=== PATIENT | female | born 1970 | race Caucasian/White ===

== ENCOUNTER 2023-03-22 01:33 | Day surgery (SDC) | payer BC, SELFPAY ==
[2023-03-10 10:04] VITALS: BMI 30.7
--- NOTE | 2023-03-10 10:09 | PC.NURSE ---
Report to the Outpatient Waiting Room, entrance under the green pavilion located off [facility], at time 0630 on date 03/22/23. Planned Procedure Time: 0830. Time changes happen often and if your time is changed the preop area will call you the afternoon before. - You and your visitor will be asked to self-screen and do not enter if you have any COVID symptoms. - A mask is optional within the hospital at this time. Patients may have clear liquids (water, carbonated beverages, clear teas, apple juice) until 3 hours prior to surgery with a maximum of 20 ounces. - No food from midnight until time of surgery Take the following medications with a SIP of water the morning of surgery: CITALOPRAM DO NOT STOP ANY OF YOUR OTHER PRESCRIPTION MEDICATIONS PRIOR TO SURGERY ?EXCEPT THE FOLLOWING Medications to discontinue per physician: VITAMINS/SUPPLEMENTS Date to take last dose: 03/18/23 Please no make-up, nail slovenian, hairspray, perfume, deodorant, or body powder the day of surgery. No jewelry (including any body piercings) or valuables the day of surgery, leave them at home. Please take a shower or bath the night before, or the morning of, surgery with an antibacterial soap. Wear comfortable, loose fitting clothing. - Jewelry must be removed prior to entering the operating room. Rings and piercings that are not removed may be cut off. - The hospital will not accept responsibility for valuables. - Please leave all valuables, including medications, at home the day of surgery. If you are going home after surgery, a licensed class a regional truck driver must drive you home. - NO public transportation without another adult if you receive anesthesia. - We recommend that an adult stay with you for 24 hours following discharge. - We also recommend that you do not drive, make important decision, drink alcoholic beverages, or take any drugs that were not prescribed by your health care provider for at least 24 hours after your discharge time. Follow any additional instructions given to you from your surgeon. If you or anyone in your household have experienced Covid symptoms in the past week, please notify your surgeon or the nurse liaison at the phone number below for possible testing. Telephone instructions given to PT - SURJIT AGUIRRE and asked if any additional questions and then verbalized understanding. Patient advised to call surgeon office or pre surgery nurse liaison [phone] if any additional questions.
--- NOTE | 2023-03-17 13:00 | PM.IMHP ---
H&P: HPI History of Present Illness Date/Time: 03/17/23 13:00 Chief Complaint: Right posterior ankle and heel pain and swelling Narrative: 52-year-old woman with right Achilles tendinitis and calcaneal exostosis. Pain with daily activity. Problems with shoe wear. Failed treatment with inserts, therapy, bracing, activity modification And medication. Presents for operative treatment. Review of Systems Constitutional: Constitutional: Denies fever(s) Eyes: Eyes: Denies blurry vision ENT: Reports Normal hearing present Cardiovascular: Cardiovascular: Denies chest pain and Denies dyspnea Respiratory: Respiratory: Denies dyspnea and Denies wheezing Gastrointestinal: Gastrointestinal: Denies abdominal pain Genitourinary: Genitourinary: Denies urinary urgency Musculoskeletal: Musculoskeletal: Reports as per HPI and Denies numbness Integumentary/Breasts: Skin/Breast: Denies changing lesions and Denies sores Neurologic: Reports Normal hearing present, Denies behavioral changes, Denies confusion, Denies numbness and Denies convulsions Psychiatric: Psychiatric: Denies behavioral changes, Denies confusion and Denies hallucinations Endocrine: Endocrine: Denies heat intolerance Hematologic/Lymphatic: Hematologic/Lymphatic: Denies easy bleeding Allergic/Immunologic: Allergic/Immunologic: Denies wheezing PMFSH Past Medical History Medical History (Updated 03/17/23 @ 13:02 by Cyril Kessler MD) Achilles tendinitis of right lower extremity Achilles tendon contracture, right Ankle pain, right Exostosis of right posterior calcaneus Metatarsalgia of both feet Tightness of gastrocnemius muscle Family History Family History Other Family history of malignant neoplasm Hypertension Social History Social History Smoking status: Never smoker Alcohol intake: current Alcohol use details: RARE Substance use: never Substance use type: does not use Living arrangements: with family Spiritual care concerns: No Meds Home Medications and Allergies Home Medications Medication Instructions Recorded Confirmed Type citalopram 20 mg tablet 20 mg PO DAILY 03/10/23 03/10/23 History thyroid 90 mg tablet 1 mg PO DAILY 03/10/23 03/10/23 History Allergies Allergy/AdvReac Type Severity Reaction Status Date / Time No Known Allergies Allergy Verified 11/15/23 10:02 Exam Const: General: No confusion Orientation/consciousness: No confusion HENMT: Head: normal to inspection, normocephalic and atraumatic Eyes: Conjunctivae: conjunctivae normal Sclera: sclerae normal Neck: Neck: supple and nontender Chest: Chest palpation & inspection: normal inspection of the chest Resp: Effort & Inspection: normal respiratory effort and no audible wheezes Cardio: Rate: regular rate Rhythm: regular rhythm : General: Yes deferred Skin: General skin exam: no rashes or lesions noted Neuro: General: No confusion Extrem: General: capillary refill normal Right upper extremity: normal to inspection Left upper extremity: normal to inspection Right lower extremity: normal to inspection, hip/thigh Details: normal to inspection, ankle Details: tenderness Location: of the achilles tendon, swelling Details: posteriorly (mild), abnormal ROM Details: with range as follows ( active ankle dorsiflexion -5 degrees, plantar flexion 40?, passive plantarflexion 45?, dorsiflexion to neutral), achilles tendon exam abnormal Details: tenderness to palpation of achilles tendon and other and foot Details: normal capillary refill, toes with normal ROM, vascular exam Details: dorsalis pedis pulse present and normal capillary refill and motor-sensory exam Details: two point discrimination normal Location: in all toes and light-touch normal Location: in all toes Left lower extremity: hip/thigh Details: normal to inspection
[2023-03-22] VITALS (13 sets, daily range): BP systolic 101–146; BP diastolic 61–100; PULSE 63–82; RESP 12–19; TEMP 36.2–36.8; O2SAT 94–100
--- NOTE | ~2023-03-22 | XR_ITS ---
EXAMINATION: XR surgery orthopedic DATE: 03/22/2023 08:40 INDICATION: Right Achilles tendon reconstruction. TECHNIQUE: 2 intraoperative fluoroscopic views of right foot and ankle were obtained. I was not prese nt. Fluoroscopy exposure time was 3 seconds. COMPARISON: None. FINDINGS: There are changes of resection of the posterior aspect of calcaneal tuberosity. IMPRESSION: 1. Changes of resection of the posterior aspect of calcaneal tuberosity. Reviewed, dictated and finalized at location A. [employer]LES CHANNEL OPENER
[2023-03-22] MEDS: ACETAMINOPHEN 500 MG TABLET 1000 MG PO (06:01)
--- NOTE | 2023-03-22 06:57 | WPDHPUPDATE1 ---
History and Physical Update Update Date/Time: 03/22/23 06:57 History and Physical has been reviewed, including an updated exam of the patient. There are NO changes in the patient's condition. Risks, benefits, and alternatives have been discussed and questions answered. Patient agrees to proceed with procedure.
--- NOTE | 2023-03-22 07:14 | WPDANESEPPF ---
Anes - Initial Pre Proc Eval Procedure: Operation Date: 03/22/23 08:30 Proposed Procedures p Right Achilles Reconstruction, Excision Calcaneal Exostosis - Cyril Kessler MD Date/Time: 03/22/23 07:14 Surgeon: Cyril Kessler MD Pre Op Diagnosis: Right Achilles tendonitis,achilles exostosis Patient Data Age: 53 Gender: F Height: 1.68 m Weight: 86.2 kg Allergies Allergy/AdvReac Type Severity Reaction Status Date / Time No Known Allergies Allergy Verified 03/10/23 10:02 Home Medications Medication Instructions Recorded Confirmed Type citalopram 20 mg tablet 20 mg PO DAILY 03/10/23 03/10/23 History thyroid 90 mg tablet 1 mg PO DAILY 03/10/23 03/10/23 History Patient hx anesthesia problems: post op nausea/vomiting Family hx anesthesia problems: none Results Review: All pre-operative results and documents have been reviewed as part of the pre-operative evaluation. [facility] Past Medical History Medical History (Updated 03/17/23 @ 13:02 by Cyril Kessler MD) Achilles tendinitis of right lower extremity Achilles tendon contracture, right Ankle pain, right Exostosis of right posterior calcaneus Metatarsalgia of both feet Tightness of gastrocnemius muscle Family History Family History Other Family history of malignant neoplasm Hypertension Social History Social History Smoking status: Never smoker Alcohol intake: current Alcohol use details: RARE Substance use: never Substance use type: does not use Living arrangements: with family Spiritual care concerns: No Anes - Eval Final PreProcedure Day of Procedure 03/22/23 07:14 Patient weight: obese Heart: regular rate and rhythm Lungs: clear to auscultation Airway: Mallampati scale class II Neurological: alert and oriented Last oral intake: >/= 8 hours ASA classification: II Emergent: no Anesthetic plan: proceed Anesthesia type and monitoring: general LMA and standard monitoring Results Review: All pre-operative results and documents have been reviewed as part of the pre-operative evaluation. Informed Consent: The patient's anesthetic plan and its attendant risks and benefits were discussed with the patient/family/POA. Questions were solicited and answers provided to the satisfaction of the patient/family/POA.
[2023-03-22] MEDS: LACTATED RINGERS 1,000 ML 30 ML IV CONT ×2 (07:25→09:54)
[2023-03-22] MEDS: KETOROLAC 15 MG/ML VIAL (*BKC) IV PUSH (07:25)
[2023-03-22] MEDS: ceFAZolin 2 GM/D5W 50 ML 2 GM/50 ML BAG IVPB (07:39)
[2023-03-22] MEDS: BUPivacaine HCL 0.5% 10 ML AMP 20 ML INFILTRATE (08:16)
[2023-03-22] MEDS: fentaNYL CITRATE INJ (*CRX) 100 MCG/2 ML VIAL 25 MCG IV PUSH ×3 (10:03→10:15)
--- NOTE | 2023-03-22 10:13 | W.PM.PROC2 ---
Procedure Note - Detailed Date of Procedure 03/22/23 Pre-op Diagnosis Right Achilles tendonitis, calcaneal exostosis Post-op Diagnosis Same Procedure Performed Right Achilles tendon reconstruction with excision of calcaneal exostosis Surgeon Cyril Kessler MD Adapted Physical Education Teacher 1st medical record assistant Anesthesia General Indications 53-year-old woman with severe posterior right heel pain, and large calcaneal exostosis and Achilles tendinitis. Failed conservative treatment with therapy, inserts, medication including steroid treatment. Presents now for operative treatment. Description of Procedure Patient identified in the preoperative holding. Informed consent given. Operative extremity marked. Patient received intravenous antibiotics. Patient brought to the operating room where underwent general anesthetic by anesthesia team. Positioned prone on operating room table. Care taken to carefully secure and protect the head neck, and pad the bony prominences, and position the shoulders and arms. Time-out performed confirming the patient, site of the surgery and the plan. Right lower extremity prepped draped usual sterile surgical fashion using ChloraPrep skin solution. Foot and ankle exsanguinated and thigh tourniquet inflated to 250 mmHg. Direct posterior midline incision made with 15 blade knife over the distal Achilles tendon and posterior calcaneus. Hemostasis achieved with electrocautery. Full-thickness skin flaps developed medially and laterally including the paratenon over the Achilles tendon. Distal Achilles tendon noted to be degenerative with calcifications present. Fifteen blade knife used to release the Achilles tendon off the distal calcaneus with a midline split. Calcifications and degenerative portions sharply excised. Sufficient amount of normal Achilles tendon remaining for reconstruction. Osteotome used to resect the posterior calcaneal exostosis and osteophytes. Edges smoothed with a rongeur. Image intensification brought in and confirmed resection of the posterior exostosis. Wound thoroughly irrigated antibiotic solution. Retrocalcaneal bursa also sharply excised and bleeding points coagulated. Attention then turned to the Achilles tendon. Reconstruction achieved with the Arthrex Speed Bridge. 2.7 mm drill holes placed in posterior calcaneus and fibertak anchors placed with fiber tape. Fiber tape then delivered through the medial and lateral end of the Achilles tendon. Repair completed by passing the FiberTape ends through 4.75 mm SwiveLock anchors placed distal to the Achilles tendon insertion. Good repair noted. Midline split repaired with 0 Vicryl interrupted suture. Wound thoroughly irrigated antibiotic solution. Paratenon then repaired with 3 0 Monocryl running suture. Deep soft tissue repaired with 2 Vicryl interrupted suture. Skin approximated with 3 0 Monocryl the subcuticular running suture and skin glue. Sterile dressing applied. Bulky dressing and splint applied after releasing the tourniquet. The patient was then woken from anesthesia, extubated and taken to the recovery room in stable condition. All sponge, needle, instrument counts were correct at the end of the case. Implants Arthrex fiber tack speed bridge repair Estimated Blood Loss 5 Tourniquet Time 90 Drains No Packing No Pathology None sent Complications None Condition Stable Disposition PACU [facility] Billing Surgery - Charge Forward: Surgery Billing ([id number], [id number])
[2023-03-22] MEDS: oxyCODONE HCL (*CRX) 5 MG TAB IR PO (11:43)
[2023-03-22] MEDS: PROPARACAINE HCL 0.5% 15 ML OPHTH SOLN 1 DROP EACH EYE (12:03)
[2023-03-22] MEDS: DICLOFENAC SODIUM 0.1% OPHTH SOLN 2.5 ML BOTTLE 1 DROP EACH EYE (12:05)
[2023-03-22] MEDS: ARTIFICIAL TEARS OPHTH SOLN 15 ML BOTTLE 1 DROP EACH EYE (12:38)
== END 2023-03-22 13:34 | disposition home or self-care (01) ==
PROVIDERS: Visit Provider Orthopaedic Surgery
PROC: (CPT 27650; principal; 2023-03-22 08:30)
DX: M76.61 Achilles tendinitis, right leg (principal); M62.89 Other specified disorders of muscle; E66.9 Obesity, unspecified; Z68.29 Body mass index [BMI] 29.0-29.9, adult; Z80.9 Family history of malignant neoplasm, unspecified
CPT/HCPCS: 27650; 28120; 99199; A9270; C1713; J0690; J1100; J1885; J2250; J2405; J2704; J3010; J7120

== ENCOUNTER 2023-04-05 03:11 | Day surgery (SDC) | payer BC, SELFPAY ==
--- NOTE | 2023-04-02 12:21 | PC.NURSE ---
Report to the Outpatient Waiting Room, entrance under the green pavilion located off [facility], at time __0700 on date __04/05/23 . Planned Procedure Time: ___0900 . Time changes happen often and if your time is changed the preop area will call you the afternoon before. - You and your visitor will be asked to self-screen and do not enter if you have any COVID symptoms. - A mask is optional within the hospital at this time. Patients may have clear liquids (water, carbonated beverages, clear teas, apple juice) until 3 hours prior to surgery (6 AM)with a maximum of 20 ounces. - No food from midnight until time of surgery - Infants may have breast milk until 4 hours before surgery, infant formula 6 hours prior to surgery. - Children will be allowed to drink immediately following surgery. If applicable, please bring a bottle or sippy cup to assist with drinking. Juice, water, soda, and popsicles are readily available. For infants on formula, please bring formula the day of surgery. Pacifiers are allowed. Take the following medications with a SIP of water the morning of surgery: ___CITALOPRAM.PERCOCET IF NEEDED DO NOT STOP ANY OF YOUR OTHER PRESCRIPTION MEDICATIONS PRIOR TO SURGERY ?EXCEPT THE FOLLOWING Medications to discontinue per physician ____ALL VITAMINS AND SUPPLEMENTS ___LAST DOSE 04/02/23__PER PATIENT Please no make-up, nail romansh, hairspray, perfume, deodorant, or body powder the day of surgery. No jewelry (including any body piercings) or valuables the day of surgery, leave them at home. Please take a shower or bath the night before, or the morning of, surgery with an antibacterial soap. Wear comfortable, loose fitting clothing. Children are encouraged to wear pajamas. - Jewelry must be removed prior to entering the operating room. Rings and piercings that are not removed may be cut off. - The hospital will not accept responsibility for valuables. - Please leave all valuables, including medications, at home the day of surgery. If you are going home after surgery, a licensed wheelchair van driver must drive you home. - NO public transportation without another adult if you receive anesthesia. - We recommend that an adult stay with you for 24 hours following discharge. - We also recommend that you do not drive, make important decision, drink alcoholic beverages, or take any drugs that were not prescribed by your health care provider for at least 24 hours after your discharge time. For Pediatric surgeries, we recommend two adults accompany the child home. Follow any additional instructions given to you from your surgeon. If you or anyone in your household have experienced Covid symptoms in the past week, please notify your surgeon or the nurse liaison at the phone number below for possible testing. Telephone instructions given to ___PATIENT and asked if any additional questions and then verbalized understanding. Patient advised to call surgeon office or pre surgery nurse liaison [phone] if any additional questions.
[2023-04-02 12:37] VITALS: BMI 29.4
[2023-04-05] VITALS (11 sets, daily range): BP systolic 102–123; BP diastolic 61–81; PULSE 59–81; RESP 12–26; TEMP 36.3–36.7; O2SAT 93–100
--- NOTE | 2023-04-05 07:28 | WPDHPUPDATE1 ---
History and Physical Update Update Date/Time: 04/05/23 07:28 History and Physical has been reviewed, including an updated exam of the patient. There are NO changes in the patient's condition. Risks, benefits, and alternatives have been discussed and questions answered. PLAN: Right achilles reconstruction, excision calcaneal exostosis, possible flexor hallucis longus tendon transfer. Patient agrees to proceed with procedure.
--- NOTE | 2023-04-05 08:02 | WPDANESEPPF ---
Anes - Initial Pre Proc Eval Procedure: Operation Date: 04/05/23 09:00 Proposed Procedures p Right Achilles Reconstruction with Excision of Calcaneal Exostosis, Possible Flexor Hallucis Longus Tendon Transfer - Cyril Kessler MD Date/Time: 04/05/23 08:02 Surgeon: Cyril Kessler MD Pre Op Diagnosis: right achilles tendonitis, Calcaneal Exostosis Patient Data Age: 53 Gender: F Height: 1.68 m Weight: 82 kg Last Vital Signs Temp 36.7 C 04/05/23 07:45 Pulse 81 04/05/23 07:45 Resp 14 04/05/23 07:45 BP 119/79 04/05/23 07:45 Pulse Ox 100 04/05/23 07:45 O2 Del Method Room Air 04/05/23 07:45 Allergies Allergy/AdvReac Type Severity Reaction Status Date / Time No Known Allergies Allergy Verified 04/05/23 07:55 Home Medications Medication Instructions Recorded Confirmed Type citalopram 20 mg tablet 20 mg PO DAILY 03/10/23 04/05/23 History thyroid 90 mg tablet 1 mg PO DAILY 03/10/23 04/02/23 History ondansetron 8 mg disintegrating 8 mg PO Q8H PRN nausea and 03/22/23 04/02/23 Rx tablet vomiting #10 tabs oxycodone-acetaminophen 7.5 mg-325 1 tablet PO Q4H PRN pain #28 tabs 03/22/23 04/02/23 Rx mg tablet (Percocet) polyethylene glycol 3350 17 gram 17 g PO DAILY PRN constipation #14 03/22/23 04/02/23 Rx oral powder packet ea sennosides 8.6 mg-docusate sodium 1 tab-cap PO BID PRN constipation 03/22/23 04/02/23 Rx 50 mg tablet (Senna with Docusate #20 tabs Sodium) multivitamin 1 tablet PO DAILY 04/02/23 04/02/23 History Patient hx anesthesia problems: post op nausea/vomiting Family hx anesthesia problems: none Results Review: All pre-operative results and documents have been reviewed as part of the pre-operative evaluation. [facility] Past Medical History Medical History Achilles tendinitis of right lower extremity Achilles tendon contracture, right Ankle pain, right Encounter for postoperative care Exostosis of right posterior calcaneus Metatarsalgia of both feet Rupture of Achilles tendon Tightness of gastrocnemius muscle Family History Family History Other Family history of malignant neoplasm Hypertension Social History Social History Smoking status: Never smoker Alcohol intake: current Alcohol use details: RARE Substance use: never Substance use type: does not use Living arrangements: with family Spiritual care concerns: No Anes - Eval Final PreProcedure Day of Procedure 04/05/23 08:02 Patient weight: overweight Heart: regular rate and rhythm Lungs: clear to auscultation Airway: Mallampati scale class II Neurological: alert and oriented Last oral intake: >/= 8 hours ASA classification: II Emergent: no Anesthetic plan: proceed Anesthesia type and monitoring: general ETT and standard monitoring Results Review: All pre-operative results and documents have been reviewed as part of the pre-operative evaluation. Informed Consent: The patient's anesthetic plan and its attendant risks and benefits were discussed with the patient/family/POA. Questions were solicited and answers provided to the satisfaction of the patient/family/POA.
[2023-04-05] MEDS: LACTATED RINGERS 1,000 ML 30 ML IV CONT ×2 (08:14→12:15)
[2023-04-05] MEDS: SCOPOLAMINE 1.5 MG PATCH TRANSDERM (08:14)
[2023-04-05] MEDS: ceFAZolin 2 GM/D5W 50 ML 2 GM/50 ML BAG IVPB (09:29)
[2023-04-05] MEDS: BUPivacaine HCL 0.5% PF 30 ML VIAL 20 ML INFILTRATE (09:56)
--- NOTE | 2023-04-05 11:31 | SUR.OPER ---
Jump Start Dressing placed in NS on sterile field prior to application
--- NOTE | 2023-04-05 12:11 | W.PM.PROC2 ---
Procedure Note - Detailed Date of Procedure 04/05/23 Pre-op Diagnosis right achilles tendonitis, Calcaneal Exostosis Post-op Diagnosis Same Procedure Performed Reconstruction right Achilles tendon with excision of calcaneal exostosis. Surgeon Cyril Kessler MD Process Engineer 1St accounts payable assistant Anesthesia General Indications 53-year-old woman who is 2 weeks status post right Achilles tendon surgery. Patient fell and her postoperative recovery and re-injured the Achilles tendon and calcaneus. Presents now for operative treatment. Findings Disruption of the Achilles tendon just above the calcaneal insertion. Disruption of the suture bridge repair of the previous Achilles tendon reconstruction. Calcaneal exostosis present. Description of Procedure Patient identified in the preoperative holding. Informed consent given. Operative extremity marked. Patient received intravenous antibiotics. Patient brought to the operating room where underwent general anesthetic by anesthesia team. Positioned prone on operating room table. Care taken to carefully secure and protect the head/ neck, and pad the bony prominences, and position the shoulders and arms. Time-out performed confirming the patient, site of the surgery and the plan. Right lower extremity prepped draped usual sterile surgical fashion using ChloraPrep skin solution. Foot and ankle exsanguinated and thigh tourniquet inflated to 250 mmHg. Direct posterior midline incision made with 15 blade knife through the previous incision. No signs of infection. Hemostasis achieved with electrocautery. Full-thickness skin flaps developed medially and laterally including the paratenon over the Achilles tendon. Distal Achilles tendon noted to be Ruptured above the insertion. Disruption of the previous suture bridge through the distal Achilles tendon noted as well.. Fifteen blade knife used to release the Achilles tendon off the distal calcaneus with a midline split. Calcifications and degenerative portions sharply excised. Sufficient amount of normal Achilles tendon remaining for reconstruction. Osteotome used to resect the posterior calcaneal exostosis and osteophytes. Edges smoothed with a rongeur. Attention then turned to the Achilles tendon. Reconstruction achieved with the Arthrex Speed Bridge. 3.5 mm drill holes placed in posterior calcaneus and PushLock anchors placed with fiber tape. Fiber tape then delivered through the medial and lateral end of the Achilles tendon. 2.7 mm fiber tack anchors also placed proximal to the to Swivellock anchors and this suture was passed through the distal Achilles tendon as well. Suture from the fiber attacks was woven through the Achilles tendon per technique and tensioned. Repair completed by passing the FiberTape ends through 4.75 mm SwiveLock anchors placed distal to the Achilles tendon insertion. Good repair noted. Midline split repaired with 0 Vicryl interrupted suture. Rupture of the Achilles tendon repaired with the minimally invasive Arthrex repair technique kit. Fiber tape suture woven through the distal Achilles tendon. 3 medial and 3 lateral sutures were then anchored to the medial and lateral calcaneus with the 3.75 SwiveLock anchors. These were placed with a dispatcher ship pilot drill hole, tapped and final SwiveLock anchor placement. Wound thoroughly irrigated With solution. Paratenon then repaired with 3 0 Monocryl running suture. Deep soft tissue repaired with 2 Vicryl interrupted suture. Skin approximated with 4 O nylon interrupted suture. Sterile dressing applied. Bulky dressing and splint applied after releasing the tourniquet. The patient was then woken from anesthesia, extubated and taken to the recovery room in stable condition. All sponge, needle, instrument counts were correct at the end of the case. Implants Arthrex Speed Bridge distal Achilles tendon repair kit, Achilles rupture repair with SwiveLock anchors. Estimated Blood Loss 5 Tourniquet Time 10
[2023-04-05] MEDS: fentaNYL CITRATE INJ (*CRX) 100 MCG/2 ML VIAL 25 MCG IV PUSH ×6 (12:14→12:57)
[2023-04-05] MEDS: oxyCODONE HCL (*CRX) 5 MG TAB IR PO (13:41)
== END 2023-04-05 14:27 | disposition home or self-care (01) ==
PROVIDERS: Visit Provider Orthopaedic Surgery
PROC: (CPT 27650; principal; 2023-04-05 09:00)
DX: S86.011A Strain of right Achilles tendon, initial encounter (principal); M76.61 Achilles tendinitis, right leg; M77.31 Calcaneal spur, right foot; W01.0XXA Fall on same level from slipping, tripping and stumbling without subsequent striking against object, initial encounter
CPT/HCPCS: 27650; 28120; A9270; C1713; J0330; J0690; J1100; J2250; J2405; J2704; J3010; J7120